=== PATIENT | female | born 1970 | race Caucasian/White ===

== ENCOUNTER 2018-06-07 16:27 | Emergency (ER) | payer MEDICARE, MEDICAID, SELFPAY ==
[2018-06-07 16:29] VITALS: BP 118/84; PULSE 16; RESP 14; TEMP 36.1; O2SAT 98; BMI 36.6
--- NOTE | 2018-06-07 16:44 | RAD_ITS ---
STUDY: X-RAY - LEFT TIBIA AND FIBULA REASON FOR EXAM: Female, 48 years old. Fall TECHNIQUE: 4 view(s) of the tibia and fibula were obtained. COMPARISON: None. FINDINGS: There is an impacted fracture of the proximal tibia with probable intra-articular extension. There is a fracture of the fibular head. RAD/Tibia & Fibula 2 Views IMPRESSION: Impression fracture of the proximal tibia with likely intra-articular extension. If indicated, further evaluation with CT can be performed. Left fibular head fracture. Electronically Signed: Chun Kong, at 17:33 EDT Tel , Service support ,
--- NOTE | 2018-06-07 16:44 | ED.VISSUMM ---
- ER Visit Summary Date of Service: 06/07/18 Chief Complaint: Left tibia and fibula fractures History of Present Illness: The patient is a 48 F who presents with fractures of her left tibia and fibula that occurred after a fall 4 days ago. Patient states she had a mechanical fall getting out of bed. Patient states she landed on her left knee. Recent went to her primary care physician's office today and had x-rays done. X-rays there showed a fracture of the proximal tibia and fibula. Patient states that the nurse practitioner there discussed the x-rays with an orthopedist there who recommended transferring the patient to the emergency department. Physical Examination: Vital signs are stable. Patient is afebrile. Patient is in no acute distress. Muscular skeletal exam reveals tenderness, edema, and ecchymosis over the proximal tibia and fibula. There is no obvious deformity noted. Range of motion was limited in all motion secondary to pain. There are no new focal motor or sensory deficits noted. Patient has a history of paraplegia. Test Results: X-rays of the left knee and tibia and fibula were obtained. There are medial and lateral tibial plateau fractures that are nondisplaced. There is a nondisplaced proximal fibula fracture as well. There are no distal tibia and fibula fractures. Emergency Department Course and Treatment: Patient was given a knee immobilizer. Patient was instructed to remain nonweightbearing. Case was discussed with Dr. Dumont from orthopedics. He agrees with the plan and will follow up with the patient as an outpatient. Patient understood and was agreeable with the plan. All questions were answered. Disposition: Discharge home Impression: Tibial plateau fracture Proximal fibula fracture This note was generated with [employer] dictation software. It may contain incorrect words, spelling, and punctuation that were not noted in review of the chart prior to signing ED Disposition - Plan for ED Patient: Disposition: Home or Assisted Living Diagnosis: Tibial plateau fracture, left, Fracture, fibula, proximal Instructions: ED Fx Lower Ext Referrals: Rylan Dumont MD [STAFF PHYSICIAN] - 3-5 Days Alphonse Samayoa MD [Primary Care Provider] - 5-7 Days Additional Instructions: Wear knee immobilizer at all times. Remain nonweightbearing on your left lower extremity.
--- NOTE | 2018-06-07 17:06 | ED.DCSUM_ITS ---
- ER Visit Summary Date of Service: 06/07/18 Chief Complaint: Left tibia and fibula fractures History of Present Illness: The patient is a 48 F who presents with fractures of her left tibia and fibula that occurred after a fall 4 days ago. Patient states she had a mechanical fall getting out of bed. Patient states she landed on her left knee. Recent went to her primary care physician's office today and had x- rays done. X-rays there showed a fracture of the proximal tibia and fibula. Patient states that the nurse practitioner there discussed the x-rays with an orthopedist there who recommended transferring the patient to the emergency department. Physical Examination: Vital signs are stable. Patient is afebrile. Patient is in no acute distress. Muscular skeletal exam reveals tenderness, edema, and ecchymosis over the proximal tibia and fibula. There is no obvious deformity noted. Range of motion was limited in all motion secondary to pain. There are no new focal motor or sensory deficits noted. Patient has a history of paraplegia. Test Results: X-rays of the left knee and tibia and fibula were obtained. There are medial and lateral tibial plateau fractures that are nondisplaced. There is a nondisplaced proximal fibula fracture as well. There are no distal tibia and fibula fractures. Emergency Department Course and Treatment: Patient was given a knee immobilizer. Patient was instructed to remain nonweightbearing. Case was discussed with Dr. Dumont from orthopedics. He agrees with the plan and will follow up with the patient as an outpatient. Patient understood and was agreeable with the plan. All questions were answered. Disposition: Discharge home Impression: Tibial plateau fracture Proximal fibula fracture This note was generated with [employer] dictation software. It may contain incorrect words, spelling, and punctuation that were not noted in review of the chart prior to signing ED Disposition - Plan for ED Patient: Disposition: Home or Assisted Living Diagnosis: Tibial plateau fracture, left, Fracture, fibula, proximal Instructions: ED Fx Lower Ext Referrals: Rylan Dumont MD [STAFF PHYSICIAN] - 3-5 Days Alphonse Samayoa MD [Primary Care Provider] - 5-7 Days Additional Instructions: Wear knee immobilizer at all times. Remain nonweightbearing on your left lower extremity.
--- NOTE | 2018-06-07 17:10 | RAD_ITS ---
STUDY: X-RAY - LEFT KNEE REASON FOR EXAM: Female, 48 years old. Fall TECHNIQUE: 4 view(s) of the knee. COMPARISON: None. FINDINGS: There is an impacted fracture of the proximal tibia with probable intra-articular extension. There is a fracture of the fibular head. There is a moderate joint effusion. RAD/Knee 4 or More Views IMPRESSION: Impression fracture of the proximal tibia with likely intra-articular extension. If indicated, further evaluation with CT can be performed. Left fibular head fracture. Moderate joint effusion. Electronically Signed: Chun Kong, at 17:33 EDT Tel , Service support ,
[2018-06-07 19:25] VITALS: BP 115/74; PULSE 90; RESP 16; O2SAT 96
== END 2018-06-07 19:30 | disposition home or self-care (01) ==
PROVIDERS: Emergency Provider Emergency Medicine; Family Provider Family Medicine; PCP Family Medicine
DX: S82.832D Other fracture of upper and lower end of left fibula, subsequent encounter for closed fracture with routine healing (principal); S82.145D Nondisplaced bicondylar fracture of left tibia, subsequent encounter for closed fracture with routine healing; W18.30XD Fall on same level, unspecified, subsequent encounter; F32.9 Major depressive disorder, single episode, unspecified; E03.9 Hypothyroidism, unspecified; N31.9 Neuromuscular dysfunction of bladder, unspecified; K59.2 Neurogenic bowel, not elsewhere classified; Z79.899 Other long term (current) drug therapy
CPT/HCPCS: 73564; 73590; 99283

== ENCOUNTER → 2018-06-14 15:19 | Outpatient (CLI) | payer MEDICARE, MEDICAID, SELFPAY ==
[2018-06-07 16:29] VITALS: BMI 36.6
--- NOTE | 2018-06-14 15:22 | CT_ITS ---
STUDY: CT LEFT KNEE WITHOUT CONTRAST REASON FOR EXAM: Female, 48 years old. Left knee fracture RADIATION DOSAGE (If Supplied By Facility): CTDIvol = ( 16.15 ) mGy, DLP = ( 460.98 ) mGycm TECHNIQUE: Transaxial CT imaging of the knee was performed. Coronal and sagittal images were reformatted. Individualized dose optimization techniques were used for this CT. COMPARISON: None. FINDINGS: Moderately comminuted proximal bilateral tibial plateau fracture with mild impaction is noted. No evidence of significant displacement or angulation. Extensive surrounding soft tissue swelling. Small joint effusion. There is also a comminuted fibular head fracture. Degenerative changes of the knee. Surrounding muscle bulk is within normal limits. CT/Extremity Lower without Contra IMPRESSION: Comminuted proximal bilateral tibial plateau fracture with appearance of mild impaction. No evidence of significant displacement or angulation. Comminuted fibular head fracture as well. Surrounding soft tissue swelling and edema with small joint effusion Electronically Signed: Yanick Chatman DO at 10:04 EDT Tel , Service support ,
== END ==
PROVIDERS: Family Provider Family Medicine; PCP Family Medicine; Referring Provider Physician Assistant; Visit Provider Physician Assistant
DX: M25.562 Pain in left knee (principal)
CPT/HCPCS: 73700